=== PATIENT | female | born 2000 | race African-American/Black ===

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

== ENCOUNTER 2022-04-21 17:12 | Inpatient (IN) | payer OTHER ==
[~2022-04-21 17:12] MED LIST: Bupivacaine HCl 0.5%/Epinephrine 1:200,000/PF 30 ml Vial ONE
[2022-04-21 17:48] VITALS: BMI 35.4
[2022-04-21] MEDS ORDERED: hydrALAZINE 20 MG/ML VIAL SLOW IVP PRN ×2 (17:48→20:22)
[2022-04-21] MEDS ORDERED: Butorphanol Tartrate 1 MG/ML VIAL SLOW IVP PRN (20:22)
[2022-04-21] MEDS ORDERED: Carboprost 250 MCG/ML AMP IM PRN (20:22)
[2022-04-21] MEDS ORDERED: Acetaminophen 500 MG TAB PO PRN (20:22)
[2022-04-21] MEDS ORDERED: Diphenoxylate HCl/Atropine Tablet PO PRN (20:22)
[2022-04-21] MEDS ORDERED: Promethazine HCl 25 MG/ML VIAL IM PRN ×2 (20:22→22:04)
[2022-04-21] MEDS ORDERED: Methylergonovine 0.2 MG/ML VIAL IM PRN (20:22)
[2022-04-21] MEDS ORDERED: Ibuprofen 800 MG TAB PO PRN (20:22)
[2022-04-21] MEDS ORDERED: Lidocaine 1% (PF) 30 ML VIAL SC PRN (20:22)
[2022-04-21] MEDS ORDERED: Ondansetron PF 4 MG/2 ML Vial IVP PRN ×2 (20:22→22:04)
[2022-04-21] MEDS ORDERED: Misoprostol 200 MCG TAB PR PRN (20:22)
[2022-04-21] MEDS ORDERED: NS w/ Oxytocin 30 units 500 ML IV SCH ×2 (20:30)
[2022-04-21] MEDS ORDERED: Lactated Ringer's 1,000 ML IV SCH (20:30)
[2022-04-21] MEDS ORDERED: Butorphanol Tartrate 1 MG/ML VIAL ONE (20:47)
[2022-04-21 20:52] LABS: Hemoglobin 11.9 g/dL (12.0-15.5); Mean Corpuscular Hemoglobin 25.1 pg (27.0-33.0); Mean Corpuscular Volume 78.3 fl (81.6-98.3); Mean Platelet Volume 10.1 fl (7.4-10.4); Platelet Count 336 10x3/uL (150-450); RBC Distribution Width 14.9 % (11.5-14.5); Red Blood Cell (RBC) Count 4.75 10x6/uL (3.90-5.03); White Blood Cell (WBC) Count 7.6 10x3/uL (3.5-10.5)
[2022-04-21] MEDS ORDERED: Fentanyl 2 mcg/Bup 0.1% Cadd 100 ML ONE (21:27)
[2022-04-21] MEDS ORDERED: Acetaminophen 325 MG TAB PO PRN (22:04)
[2022-04-21] MEDS ORDERED: Lactated Ringer's 500 ML IV PRN (22:04)
[2022-04-21] MEDS ORDERED: Naloxone HCl 0.4 mg/ml Vial IVP PRN ×2 (22:04)
[2022-04-21] MEDS ORDERED: Moisturizing Cream (Eucerin) 113 GM JAR TOP PRN (22:04)
[2022-04-21] MEDS ORDERED: diphenhydrAMINE 50 MG/ML VIAL IVP PRN (22:04)
[2022-04-21] MEDS ORDERED: ePHEDrine Sulfate 50 MG/10 ML VIAL SLOW IVP PRN (22:04)
[2022-04-21 22:06] LABS: SARS-CoV-2 NAA Rapid Test DETECTED (NotDetected)
[2022-04-21] MEDS ORDERED: Fentanyl 2 mcg/Bupivacaine 0.1% Cassette 100 ML EPIDURAL SCH (22:15)
[2022-04-21] MEDS ORDERED: Communication Order-Pharmacy FS SCH (22:15)
[2022-04-21 22:30] LABS: HBSAg Index 0.13 S/CO (0-0.99); Hep B Surf Ag Non-Reactive S/CO (NonReactive); Syphilis Antibody Nonreactive (Nonreactive); Syphilis Antibody Index 0.03 S/CO (<1.00 Non-Reactive)
[2022-04-21] MEDS ORDERED: Misoprostol 200 MCG TAB ONE (23:38)
[2022-04-22] MEDS ORDERED: Ondansetron PF 4 MG/2 ML Vial IVP PRN (03:55)
[2022-04-22] MEDS ORDERED: Misoprostol 200 MCG TAB VAG PRN (03:55)
[2022-04-22] MEDS ORDERED: Milk Of Magnesia 30 ML UDCUP PO PRN (03:55)
[2022-04-22] MEDS ORDERED: Bisacodyl 10 MG SUPP PR PRN (03:55)
[2022-04-22] MEDS ORDERED: Boostrix 0.5 ML (Tdap) VIAL (>/=7 yrs of age) IM ONE (03:55)
[2022-04-22] MEDS ORDERED: hydrALAZINE 20 MG/ML VIAL SLOW IVP PRN (03:55)
[2022-04-22] MEDS ORDERED: Methylergonovine 0.2 MG/ML VIAL IM PRN (03:55)
[2022-04-22] MEDS ORDERED: Lanolin Ointment 7 GM TUBE TOP PRN (03:55)
[2022-04-22] MEDS ORDERED: NS w/ Oxytocin 30 units 500 ML IV SCH (03:55)
[2022-04-22] MEDS ORDERED: Promethazine HCl 25 MG/ML VIAL IM PRN (03:55)
[2022-04-22] MEDS ORDERED: Benzocaine-Menthol 82.5 ML CAN TOP PRN (03:55)
[2022-04-22] MEDS: Ibuprofen 800 MG TAB PO SCH ×3 (04:05→21:31)
[2022-04-22] MEDS: Ferrous Sulfate 325 MG TAB PO SCH ×2 (08:41→16:07)
[2022-04-22] MEDS: Docusate 100 MG CAP PO SCH ×2 (08:41→21:31)
[2022-04-22] MEDS: Prenatal Vitamin 1 TAB PO SCH (08:41)
[2022-04-23] MEDS: Ibuprofen 800 MG TAB PO SCH (05:31)
[2022-04-23 08:30] VITALS: BP 112/63; TEMP 98.1
[2022-04-23] MEDS: Prenatal Vitamin 1 TAB PO SCH (08:34)
[2022-04-23] MEDS: Docusate 100 MG CAP PO SCH (08:34)
[2022-04-23] MEDS: Ferrous Sulfate 325 MG TAB PO SCH (08:34)
== END 2022-04-23 12:30 | disposition home or self-care (01) | DRG 805 ==
LOC: CSHLD/OP 17:12 → CSHLD 19:53 → CSHPP 04-22 00:35
PROVIDERS: ADMIT Family Medicine; ATTEND Family Medicine
PROC: 8E0ZXY6 Isolation (ICD-10-PCS; 2022-04-21)
PROC: 10E0XZZ Delivery of Products of Conception, External Approach (ICD-10-PCS; principal; 2022-04-22)
PROC: 0KQM0ZZ Repair Perineum Muscle, Open Approach (ICD-10-PCS; 2022-04-22)
DX: O98.52 Other viral diseases complicating childbirth (principal); U07.1 COVID-19; Z37.0 Single live birth; Z79.82 Long term (current) use of aspirin; Z79.899 Other long term (current) drug therapy; Z3A.38 38 weeks gestation of pregnancy; O42.02 Full-term premature rupture of membranes, onset of labor within 24 hours of rupture; O76 Abnormality in fetal heart rate and rhythm complicating labor and delivery; O70.1 Second degree perineal laceration during delivery; O32.8XX0 Maternal care for other malpresentation of fetus, not applicable or unspecified
CPT/HCPCS: 36415; 51702; 85027; 86780; 86850; 86900; 86901; 87340; 99285; J0595; J7120; U0002